=== PATIENT | female | born 1965 | race African-American/Black ===

== ENCOUNTER 2017-02-20 13:12 | Emergency (ER) | payer OTHER, MEDICAID ==
[~2017-02-20] VITALS: Ht 157.5 cm; Wt 72.6 kg
[2017-02-20 13:17] VITALS: BP 135/80
[2017-02-20] MEDS ORDERED: IBUPROFEN 600 MG TAB PO ONE (15:30)
[2017-02-20 15:53] VITALS: BP 135/71
== END 2017-02-20 15:53 | disposition home or self-care (01) ==
LOC: MED 13:12
DX: S16.1XXA Strain of muscle, fascia and tendon at neck level, initial encounter (principal); R03.0 Elevated blood-pressure reading, without diagnosis of hypertension; V43.52XA Car driver injured in collision with other type car in traffic accident, initial encounter; Y93.89 Activity, other specified; Y92.488 Other paved roadways as the place of occurrence of the external cause; Y99.8 Other external cause status
CPT/HCPCS: 72125; 72131; 81002; 81025; 99284; 99285